=== PATIENT | male | born 1970 | race Caucasian/White ===

== ENCOUNTER 2018-04-01 18:42 | Emergency (ER) | payer MEDICAID ==
[~2018-04-01] VITALS: Ht 175.3 cm; Wt 68.0 kg
[~2018-04-01 18:42] MED LIST: ACET325T53 PO; AMPH50VI IJ; AZIT600T5 PO; DIPH12.56 PO; DOLU50TA PO; EMTR1TAB17 PO; FLUC100T8 PO; LEVO137T2 PO; ONDA4TAB5 PO; SULF1TAB3 PO
--- NOTE | 2018-04-01 18:55 | NUR ---
[facility] For mid line placement. C/O RIGHT ARM PAIN FROM PREVIOUS PIC LINE PLACEMENT. PT IS AOX4, VSS, RESPIRATIONS EVEN AND UNLABORED ON ROOM AIR. SKIN WARM, DRY, INTACT. NO ACUTE DISTRESS NOTED. READY FOR EVAL.
--- NOTE | 2018-04-01 19:15 | NUR ---
BLANKET PROVIDED FOR COMFORT
--- NOTE | 2018-04-01 19:25 | NUR ---
DR NORTH AT BEDSIDE
--- NOTE | 2018-04-01 21:00 | NUR ---
Patient is resting comfortably in bed with eyes closed. Easily aroused. VSS. AWAITING MIDLINE NURSE. ETA [id number].
--- NOTE | 2018-04-01 21:20 | NUR ---
MIDLINE NURSE AT BEDSIDE
--- NOTE | 2018-04-01 21:33 | NUR ---
PER MIDLINE NURSE, MIDLINE PLACED LEFT UPPER 18
--- NOTE | 2018-04-01 21:49 | NUR ---
[facility] TRIP#[id number] ETA
--- NOTE | 2018-04-01 21:50 | NUR ---
PT UP TO USE BATHROOM. STATES HE TOLERATED PROCEDURE WELL.
--- NOTE | 2018-04-01 22:35 | NUR ---
Chandana wright in ED - 04/01/18 at 2237 by RENETTA Patient discharged to home in stable condition. Written and verbal after care instructions given. Patient verbalizes understanding of instruction.
--- NOTE | 2018-04-01 22:37 | NUR ---
Patient discharged to [facility] in stable condition. Written and verbal after care instructions given. Patient verbalizes understanding of instruction.
[2018-04-01 22:38] VITALS: BP 131/67
== END 2018-04-01 22:30 ==
LOC: ER 18:45
DX: T80.211A Bloodstream infection due to central venous catheter, initial encounter (principal); Z98.890 Other specified postprocedural states; Z88.1 Allergy status to other antibiotic agents; Z88.8 Allergy status to other drugs, medicaments and biological substances; Z86.19 Personal history of other infectious and parasitic diseases; Z79.899 Other long term (current) drug therapy; Z87.19 Personal history of other diseases of the digestive system
CPT/HCPCS: 36569; 99285; A4606; Z7610

== ENCOUNTER 2018-08-10 11:00 | Emergency (ER) | payer MEDICAID ==
[~2018-08-10] VITALS: Ht 177.8 cm; Wt 70.3 kg
--- NOTE | 2018-08-10 11:50 | NUR ---
C/O N/V/D X 2 DAYS. DENIES ABD PAIN. PT AAOX4, VSS. DENIES ANY OTHER DISCOMFORT @ THIS TIME. AWAITING EVAL BY ERMBarry. WILL CONT TO MONITOR.
[2018-08-10] MEDS ORDERED: IV NS 0.9% 1,000 ML BAG IV ONE (12:00)
[2018-08-10] MEDS ORDERED: ONDANSETRON HCL/PF 4 MG/2 ML VIAL IVP ONE (12:00)
[2018-08-10 12:08] LABS: BASOPHILS % (AUTO) 0.8 % (0.0-2.0); EOSINOPHILS % (AUTO) 0.1 % (0.0-6.0); HEMATOCRIT 39 % (39-51); HEMOGLOBIN 13.5 g/dL (13.5-17.5); LYMPHOCYTES # (AUTO) 0.5 /CMM (0.8-4.8); LYMPHOCYTES % (AUTO) 13.7 % (20.0-44.0); MEAN CORPUSCULAR HGB CONC 34 g/dl (31.0-36.0); MEAN CORPUSCULAR VOLUME 99 fL (80-96); MONOCYTES # (AUTO) 0.7 /CMM (0.1-1.30); NEUTROPHILS # (AUTO) 2.7 /CMM (1.8-8.9); NEUTROPHILS % (AUTO) 68.4 % (43.0-81.0); PLATELET COUNT (AUTO) 214 /CMM (150-450); RED BLOOD CELL COUNT(AUTO) 3.99 MIL/uL (4.5-6.0); WHITE BLOOD COUNT (AUTO) 3.9 K/uL (4.3-11.0)
[2018-08-10 12:20] LABS: CALCIUM, SERUM 9.2 mg/dL (8.5-10.1); CREATININE 1.1 mg/dL (0.6-1.3)
[2018-08-10 12:25] LABS: ALBUMIN 3.9 g/dL (3.4-5.0); BILIRUBIN,DIRECT 0.2 mg/dL (0.0-0.2); BILIRUBIN,TOTAL 0.6 mg/dL (0.2-1.0); TOTAL PROTEIN, SERUM 7.9 g/dL (6.4-8.2)
[2018-08-10 12:33] LABS: BAND % (MANUAL) 1 % (0.0-5.0); LYMPHOCYTES % (MANUAL) 13 % (16-48); MONOCYTES % (MANUAL) 16 % (0-11.0); NEUTROPHILS % (MANUAL) 70 (42-76)
[2018-08-10] MEDS ORDERED: ONDANSETRON HCL/PF 4 MG/2 ML VIAL ONE (12:35)
--- NOTE | 2018-08-10 12:49 | NUR ---
MEDICATED PER ERMD ORDER, PT AMITA WELL.
--- NOTE | 2018-08-10 13:45 | NUR ---
Patient discharged to home in stable condition. Written and verbal after care instructions given. Patient verbalizes understanding of instruction. IV removed. Catheter intact and site benign. Pressure and 4x4 applied to site. No bleeding noted.
[2018-08-10 13:46] VITALS: BP 132/58
== END 2018-08-10 13:47 | disposition home or self-care (01) ==
LOC: ER 11:07
DX: R11.2 Nausea with vomiting, unspecified (principal); R19.7 Diarrhea, unspecified; D72.819 Decreased white blood cell count, unspecified; E03.9 Hypothyroidism, unspecified; Z59.0 Homelessness; Z86.19 Personal history of other infectious and parasitic diseases; Z98.890 Other specified postprocedural states; Z88.1 Allergy status to other antibiotic agents
CPT/HCPCS: 36415; 80048; 80076; 83690; 85025; 96361; 96374; 99283; J2405; J7030